=== PATIENT | male | born 1925 | race Caucasian/White ===

== ENCOUNTER 2016-08-07 03:13 | Inpatient (IN) | payer MEDICARE, BC ==
[~2016-08-07] VITALS: Ht 185.4 cm; Wt 112.8 kg
[~2016-08-07 03:13] MED LIST: ACETAMINOPHEN500 M1 PO; CEFTIN250 MG PO; CHILDREN'S ASPI81 MG PO; CORDARONE200 MG PO; COZAAR25 MG PO; CRANBERRY475 MG PO; FLOMAX0.4 MG PO; GLUCOTROL XL 5 M5 MG PO; LEVEMIR100 U/M1 SC; LEVOXYL100 MCG PO; LIPITOR40 MG PO; MILK OF MAGNESI30 ML PO; MIRALAX17 GM PO; MYLANTA II SUSP30 ML PO; NORVASC2.5 MG PO; PERI-COLACE TAB1 TAB PO; PLAVIX75 MG PO; REMERON15 MG PO; THEREMS-M1 TAB PO; ZYLOPRIM100 MG PO
[2016-08-07 03:55] LABS: BASOPHILS 0 % (0.0-2.0); EOSINOPHILS 0.5 % (0-7); HEMATOCRIT 37.8 % (42.0-54.0); HEMOGLOBIN 11.5 g/dL (13.5-17.5); IMMATURE GRANULOCYTES 0.3 % (0-5); LYMPHOCYTES 6.4 % (15-50); MCH 29.8 pg (26.0-34.0); MCHC 30.4 g/dL (31.0-37.0); MCV 97.9 fL (80.0-100.0); MEAN PLATELET VOLUME 9.6 fL (7.4-10.4); MONOCYTES 13.2 % (2-11); NEUTROPHILS 79.6 % (40-80); PLATELET COUNT 141 10x3/uL (130-400); RBC 3.86 10x6/uL (4.20-6.10); RDW 15.2 % (11.5-14.5); WBC 6.2 10x3/uL (4.8-10.8)
[2016-08-07 04:16] LABS: ANION GAP 8.2 mmol/L (8-16); BILIRUBIN - TOTAL 0.32 mg/dL (0.2-1.3); CALCIUM 8.2 mg/dL (8.5-10.1); CREATININE - SERUM 1.3 mg/dL (0.6-1.3); POTASSIUM - SERUM 5.2 mmol/L (3.5-5.1); PROTEIN - SERUM 6.3 g/dL (6.4-8.2)
--- NOTE | 2016-08-07 08:00 | NUR ---
RECIEVED TO ROOM FROM ER NON RESPONSIVE FAMILY AT SIDE LUNGS WITH DIMINISHED SOUNDS BILATERALLY AND A&P ABDOMEN SOFT AND NON TENDER ROUND. PIV TO LEFT HAND PATENT TO LEVAQUIN. O2 @ 2LPM PER ORDER. VITAL SIGNS WITH IN NORMAL LIMITS BUT HAS HYPTHERMIA NOTED BODY TEMP 93.4 BLANKET FROM BLANKET WARMER PLACED NEXT TO SKIN. WILL REASSESS,
--- NOTE | 2016-08-07 10:00 | NUR ---
MOTA CATHETER INSERTED 16 FR USING STERILE TECHNIQUE IMMEDIATE RETURN OF 600 CC CLEAR YELLOW URINE. AFTER DRAINING BLADDER PT HAS EPISODE OF RESPONSIVENESS TALKING TO FAMILY AND STAFF ALERT AND ORINETD X 2 BODY TEMP 95.6 NOTED
[2016-08-07 13:20] VITALS: BP 143/58
[2016-08-07 13:44] LABS: APPEARANCE HAZY (CLEAR); BILIRUBIN NEGATIVE (NEGATIVE); COLOR YELLOW (YELLOW); GLUCOSE NEGATIVE (NEGATIVE); KETONE NEGATIVE (NEGATIVE); LEUKOCYTE ESTERASE TRACE (NEGATIVE); NITRITE NEGATIVE (NEGATIVE); PROTEIN NEGATIVE (NEGATIVE); SPECIFIC GRAVITY 1.015 (1.005-1.020); UROBILINOGEN NORMAL (NORMAL)
[2016-08-07 13:54] LABS: AMORPHOUS SEDIMENT >1+ /lpf (NONE SEEN); BACTERIA MODERATE /hpf (NONE SEEN); EPITHELIAL CELLS OCC /hpf (0-5); GRANULAR CAST 0-5 /lpf (NONE SEEN); HYALINE CAST 0-5 /lpf (NONE SEEN); RED CELLS - URINE OCC /hpf (0-5)
[2016-08-07 14:08] VITALS: BP 161/70; BMI 31.7
[2016-08-07 16:37] VITALS: BP 137/59
--- NOTE | 2016-08-07 16:42 | HP ---
PATIENT: ZAHRA HEALY V MEDICAL RECORD: [id number] ACCOUNT: [id number] LOCATION:D.[id number] : [birth year] ADMISSION DATE: 08/07/16 HISTORY AND PHYSICAL EXAMINATION Admission History and Physical HISTORY OF PRESENT ILLNESS: An 89-year-old male, patient of Dr. Prince, presented to the Emergency Room as unassigned medicine, respiratory distress, unresponsive, has had deteriorating symptoms for the past 2 days. He is bedridden for several years and getting out of bed with full assist [facility] to a chair at the [facility], has advanced dementia, nonverbal. PAST MEDICAL HISTORY: Significant for prior CVA, diabetes, hypertension, gout, advanced dementia, unclear cardiac disease. Family reports he has not seen a concrete vault maker. REVIEW OF SYSTEMS: Limited to the above history. MEDICATIONS FROM THE RETIREMENT: Include recently started cefuroxime, Flomax, Plavix, amiodarone, this is reportedly for ventricular fibrillation; amlodipine, atorvastatin, aspirin, Milk of Magnesia p.r.n., MiraLax, Jennifer-Colace, Levemir 30 units subQ daily, levothyroxine 100 mcg daily, glipizide 5 mg daily, cranberry capsule. ALLERGIES: REPORTED OMEPRAZOLE. PHYSICAL EXAMINATION: VITAL SIGNS: Afebrile, blood pressure 163/69, labile, heart rate 71, respirations 21, and O2 sats 97% on 2 liters. HEENT: Does not open his eyes No evidence of trauma. NECK: Supple, no JVD. HEART: Regular rate and rhythm. LUNGS: Coarse rhonchi bilaterally, poor air movement. ABDOMEN: Soft and nontender. CHEST: On his chest, he has bruising consistent with extensive sternal rub and likely unresponsive at the [facility] leading to his transfer to the ER. EXTREMITIES: Present times 4. GENITOURINARY: No evidence of trauma. Elliott placed with 600 plus cc, immediate return. NEUROLOGIC: The patient is nonverbal, unresponsive presently. LABORATORY DATA: Lactic acid 0.5. CBC: White count 6.2, hemoglobin 11.5, hematocrit 37.8, and platelets 141. Chemistry shows a sodium of 142, potassium 5.2, chloride 104, bicarbonate 35, creatinine 1.3. T-bili 0.32, AST 13, ALT 20. ProBNP 545, albumin 3.0. DIAGNOSTIC DATA: Chest x-ray, moderate right and small left pleural effusion, consolidation in right lower lobe, increased interstitial markings, concerning for underlying infectious infiltrate. ASSESSMENT AND PLAN: Pneumonia, congestive heart failure, acute mental status change with chronic advanced dementia, diabetes. The patient is admitted med on-call. Cautious diuresis, monitor blood pressure. IV antibiotics for the pneumonia. Blood cultures pending. With diabetes, sliding scale insulin, low HISTORY AND PHYSICAL [id number] MONET,ONYAL V resistance. We will consult pulmonology. We will obtain echocardiogram. We will obtain CT of the head. Discussed with the family with multiple comorbidities. PRESENTATION: Poor prognosis. DNR code status. I do not want him intubated, no heroic measures. TRANSINT:[id number] Voice Confirmation ID: [id number] DOCUMENT ID: [id number] TWILA PARK DO at 1642 CC: [id number] DICTATION DATE: 08/07/16 1145 [employer] SYSTEMS ADMINISTRATOR: 08/07/16 1336 ADM IN [facility] [address] [place] [address]
--- NOTE | 2016-08-07 18:28 | NUR ---
COMPLAINS OF CHEST PAIN DR DAWSON ROUNDS NEW ORDERS OBTAINED. AND FOLLOWED PHYSICAN CONSULT FOR CARDIOLOGY SPOKE WITH DR SIMPSON STAT LABS OF TRIPONIN AND D DIMER. FAMILY AT BEDSIDE.
[2016-08-07 20:00] VITALS: BP 119/52
[2016-08-08] VITALS: BP 141/54
[2016-08-08 04:00] VITALS: BP 102/72
--- NOTE | 2016-08-08 04:40 | NUR ---
PATIENT RESTING WITH EYES CLOSED AND GUEST AT BEDSIDE. NO VISIBLE SIGNS OF DISTRESS. BED IN LOWEST POSITION AND CALL LIGHT WITHIN REACH.
--- NOTE | 2016-08-08 05:52 | NUR ---
PT WAS MEDICATED WITH GLUCAGEN D/T BS OF 55 AT THIS TIME.WIILL RECHECK IN 30 MINS.
[2016-08-08 07:00] LABS: BASOPHILS 0.2 % (0.0-2.0); EOSINOPHILS 0.6 % (0-7); HEMATOCRIT 35.7 % (42.0-54.0); HEMOGLOBIN 10.9 g/dL (13.5-17.5); IMMATURE GRANULOCYTES 0.2 % (0-5); MCHC 30.5 g/dL (31.0-37.0); MCV 98.3 fL (80.0-100.0); MONOCYTES 15.8 % (2-11); NEUTROPHILS 71.2 % (40-80); PLATELET COUNT 146 10x3/uL (130-400); RBC 3.63 10x6/uL (4.20-6.10); RDW 15.5 % (11.5-14.5); WBC 4.8 10x3/uL (4.8-10.8)
[2016-08-08 07:20] LABS: ANION GAP 8.2 mmol/L (8-16); CALCIUM 8.6 mg/dL (8.5-10.1); CARBON DIOXIDE 34.9 mmol/L (21.0-32.0); CREATININE - SERUM 1.4 mg/dL (0.6-1.3); MAGNESIUM - SERUM 2.3 mg/dL (1.8-2.4); PHOSPHOROUS 3.8 mg/dL (2.5-4.9); POTASSIUM - SERUM 5.1 mmol/L (3.5-5.1)
--- NOTE | 2016-08-08 07:45 | NUR ---
SLEEPING, AROUSES TO VOICE, FAMILY AT BEDSIDE, DENIES NEEDS WILL CONTINUE TO MONITOR
[2016-08-08 10:07] VITALS: BP 140/61
[2016-08-08 12:50] VITALS: BP 138/64
[2016-08-08 17:17] VITALS: BP 132/60
[2016-08-08 19:00] VITALS: BP 141/60
--- NOTE | 2016-08-08 20:00 | NUR ---
REC'IN BED WITH EYES CLOSED EASILY AROUSED WHEN NAME IS CALLED. RESP EVEN AND UNLABORED WITH NO DISTRESS NOTED. CAN EXPRESS SOME NEEDS AND WANTS. NO C/O PAIN OR DISCOMFORT NOTED OR VOICED AT THIS TIME. C/L IN REACH AT BEDSIDE.
[2016-08-09] VITALS (13 sets, daily range): BP systolic 127–167; BP diastolic 56–80
--- NOTE | 2016-08-09 04:37 | NUR ---
RESTING WELL AT THIS TIME WITH DAUGHTER AT BEDSIDE. CHECKED ON OFTEN. C/L IN REACH AT BEDSIDE.
[2016-08-09 04:59] LABS: BASOPHILS 0.2 % (0.0-2.0); EOSINOPHILS 0.7 % (0-7); HEMATOCRIT 34.7 % (42.0-54.0); HEMOGLOBIN 10.8 g/dL (13.5-17.5); LYMPHOCYTES 24.5 % (15-50); MCH 30.3 pg (26.0-34.0); MCHC 31.1 g/dL (31.0-37.0); MCV 97.5 fL (80.0-100.0); MEAN PLATELET VOLUME 9.9 fL (7.4-10.4); NEUTROPHILS 58.6 % (40-80); PLATELET COUNT 172 10x3/uL (130-400); RBC 3.56 10x6/uL (4.20-6.10); RDW 15.5 % (11.5-14.5); WBC 5.4 10x3/uL (4.8-10.8)
[2016-08-09 05:28] LABS: APTT 40.1 SECONDS (22.8-39.4); INR 1.2 (0.85-1.17); PROTIME 15.1 SECONDS (11.6-15.0)
[2016-08-09 05:32] LABS: CALCIUM 9.1 mg/dL (8.5-10.1); CARBON DIOXIDE 35.5 mmol/L (21.0-32.0); CREATININE - SERUM 1.6 mg/dL (0.6-1.3); MAGNESIUM - SERUM 2.5 mg/dL (1.8-2.4); POTASSIUM - SERUM 4.5 mmol/L (3.5-5.1); PROTEIN - SERUM 6.1 g/dL (6.4-8.2)
--- NOTE | 2016-08-09 10:24 | NUR ---
Patient Name: ZAHRA HEALY Admission Status: ER Accout number: [id number] Admission Date: 08-07-2016 : 1925 Admission Diagnosis: Attending: KANIKA Current LOS: 2 Anticipated DC Date: 08-13-2016 Planned Disposition: Nursing Facility [facility] Cert Primary Insurance: MEDICARE A & B Discharge Planning Comments: CM MET WITH FAMILY-PAXTON (DAUGHTER), AND GABE (SON) REGARDING D/C NEEDS AND PLANS. PATIENT LIVES AT [facility] AND WILL RETURN THERE BY AMBULANCE WHEN DISCHARGED. PATIENT USES OXYGEN AT , DIABETIC, AND IS IN A WHEELCHAIR WHEN UP PER FAMILY. PATIENTS PCP IS DR. DIAZ AND PHARMACY IS IN HOUSE. CM WILL CONTINUE TO FOLLOW PATIENT WITH D/C NEEDS AND PLANS. PCP DR. DIAZ IN HOUSE PHARMACY AT [facility] [phone] PAXTON (DAUGHTER) [phone] GABE (SON) [phone] Offender Employment Specialist: Tatyana Jennings How many steps to enter\exit or inside your home? 0 0 * PCP DR. DIAZ 0 * Pharmacy IN HOUSE [facility] 0 * Preadmission Environment Alf Long-Term 0 * Facility Name [facility] 0 * ADLs Total Dependent 0 * Equipment Oxygen Wheelchair 0 * Other Equipment [facility] HAS NEEDED EQUIPMENT 0 * List name and contact numbers for known caregivers / representatives who currently or will assist patient after discharge: PAXTON HANDLEY (DAUGHTER) [phone] GABE HEALY (SON) [phone] 0 * Community resources currently utilized None 0 * Additional services required to return to the preadmission environment? Yes 0 * Can the patient safely return to the preadmission environment? Yes 0 * Has this patient been hospitalized within the prior 30 days at any hospital? No 0 Grand Total: 0
[2016-08-09 12:20] LABS: PROTEIN - BODY FLUID 2.6 G/DL
--- NOTE | 2016-08-09 12:40 | EC ---
PATIENT:ZAHRA HEALY V DATE OF SERVICE: 08/07/16 SEX: M MEDICAL RECORD: [id number] DATE OF : [birth year] LOCATION:D[facility] AGE OF PATIENT: 89 ADMISSION DATE: 08/07/16 REFERRING PHYSICIAN: INTERPRETING PHYSICIAN: MARILIN SIMPSON MD ECHOCARDIOGRAM REPORT ECHO CHARGES 4 ECHO COMPLETE CLINICAL DIAGNOSIS: CHF ECHOCARDIOGRAPHIC MEASUREMENTS (adult normal given) AC root (d.<3.7cm) 3.8 LV Septum d (<1.2 cm> 1.4 Valve Excursion 1.5 LV Septum (systole) 1.7 Left Atria (s.<4.0cm> 4.0 LVPW d(<1.2cm) 1.5 RV (d.<2.3cm) 4.1 LVPW (sytole) 1.9 LV diastole(<5.6CM) 4.9 MV E-F(>70mm/sec) LV systole 3.8 LVOT Diameter 1.8 MV exc.(>10mm) Est.ejection fraction (50-75%) Pericardial Effusion N DOPPLER: LVIT A 122 E 99.0 LA RVSP 27 LVOT 172 AOP1/2T Asc. Ao 257 RVOT 79 RA PA 120 AV Gradient Peak 26.41 AV Mean 13.44 AV Area 1.7 MV Gradient Peak 6.72 MV Mean 2.71 MV Area COMMENTS: Housekeeping Aid: Manuel DICKERSON Automation Clerk:Yahaira Wood TAPE# PACS DATE OF SERVICE: 08/07/2016 Adequate 2D echo, color flow, spectral Doppler, M-Mode. LVH present. LV internal dimension is normal. Wall motion is normal. EF is greater than 55%. Aortic valve is tricuspid. No stenosis by Doppler interrogation. The left atrium is normal. Mitral valve shows no prolapse. Trace mitral regurgitation. Right-sided chamber is normal. Trace tricuspid regurgitation. TRANSINT:[id number] Voice Confirmation ID: [id number] DOCUMENT ID: [id number] ECHOCARDIOGRAM REPORT [id number] AZHRA HEALY V MARILIN SIMPSON MD at 1240 CC: [id number] DICTATION DATE: 08/07/162006 COMPUTER METHODS ANALYST: 08/07/16 2303 ADM IN [facility] [address] [facility] [address]
--- NOTE | 2016-08-09 13:15 | NUR ---
PT AOX4 RESP EVEN AND NONLABORED PT DENIES PAIN AT THIS TIME IV TO LEFT HAND PATENT AND INTACT PT RECEIVING IV ANTIBIOTICS FOR PNEUMONIA DURING THIS SHIFT. SRX2 CALL LIGTH WITHIN REACH BED IN LOWEST POSITION WILL CONTINUE TO MONITOR
[2016-08-09 14:44] LABS: LYMPH - BF 36 %; MACROPHAGES BF 37 %; MESOTHELIALS BF 13 %; NEUT - BF 14 %
--- NOTE | 2016-08-09 19:35 | NUR ---
PT RECEIVED IN BED WITH EYES CLOSED AND CHEST RISING. AROUSED TO VERBAL STIMULI. NO SIGN/SYMPTOMS OF DISTRESS NOTED. NO NEEDS MADE KNOWN. WILL CONTINUE TO OBSERVE. CALL LIGHT IN REACH.
[2016-08-10] VITALS (7 sets, daily range): BP systolic 137–153; BP diastolic 62–72; Ht 185.4 cm; Wt 112.8 kg
--- NOTE | 2016-08-10 00:16 | NUR ---
PT IN BED WITH EYES CLOSED AND CHEST RISING. AROUSED TO VERBAL STIMULI. NO SIGN/SYMPTOMS OF DISTRESS NOTED. FSBS 100 WITH 6U GIVEN. NO CONCERNS NOTED AT THIS TIME. WILL CONTINUE TO OBSERVE. CALL LIGHT IN REACH.
--- NOTE | 2016-08-10 02:52 | NUR ---
PT IN BED WITH EYES CLOSED AND CHEST RISING. NO SIGN/SYPTOMS OF DISTRESS NOTED. CALL LIGHT IN REACH.
[2016-08-10 06:07] LABS: BASOPHILS 0.2 % (0.0-2.0); EOSINOPHILS 4.3 % (0-7); HEMATOCRIT 35.5 % (42.0-54.0); HEMOGLOBIN 10.7 g/dL (13.5-17.5); IMMATURE GRANULOCYTES 0.4 % (0-5); LYMPHOCYTES 17.5 % (15-50); MCH 29.7 pg (26.0-34.0); MCHC 30.1 g/dL (31.0-37.0); MCV 98.6 fL (80.0-100.0); MEAN PLATELET VOLUME 9.6 fL (7.4-10.4); MONOCYTES 17.5 % (2-11); NEUTROPHILS 60.1 % (40-80); PLATELET COUNT 170 10x3/uL (130-400); RDW 15.4 % (11.5-14.5); WBC 5.4 10x3/uL (4.8-10.8)
[2016-08-10 06:58] LABS: CALC OSMOLALITY 304 mosm/kg (275-300); CARBON DIOXIDE 38.5 mmol/L (21.0-32.0); CHLORIDE - SERUM 106 mmol/L (98-107); CREATININE - SERUM 1.6 mg/dL (0.6-1.3); GLUCOSE 113 mg/dL (74-106); MAGNESIUM - SERUM 2.2 mg/dL (1.8-2.4); POTASSIUM - SERUM 4.3 mmol/L (3.5-5.1); PRO BNP 742 pg/mL (0-450); SODIUM 147 mmol/L (136-145); TROPONIN-I < 0.017 ng/mL (0.000-0.060); UREA NITROGEN 45 mg/dL (7-18); eGFR NON AFRICAN AMERICAN 43 mL/min (90-120)
--- NOTE | 2016-08-10 07:30 | NUR ---
PT ASSESSMENT AWAKE CONFUSED IS LETHARGIC AROUSES TO VERBAL STIMULI BUT FALLS RAPIDLY BACK TO SLEEP BSA X 4 QUADS.
--- NOTE | 2016-08-10 15:55 | NUR ---
PT CONFUSED RESP EVEN AND NONLABORED IV TO LEFT HAND PATENT AND INTACT PT HERE FOR PNEUMONIA IV ANTIBIOTICS FOR TREATMENT. SRX2 CALL LIGHT WITHIN REACH BED AT LOWEST SETTING WILL CONTINUE TO MONITOR BED ALARM ACTIVATED
--- NOTE | 2016-08-10 19:15 | NUR ---
PT RECEIVED LYING IN BED WITH EYES CLOSED AT THIS TIME. PT LETHARGIC. S/L NOTED TO LEFT WRIST. DRESSING CDI. HEART RRR. LUNG SOUNDS - UPPER LOBES CLEAR. BILATERAL LOWER LOBE SOUNDS DIMINISHED. BOWEL SOUNDS ACTIVE X4 QUADRENTS. ABDOMEN SOFT, NON-TENDER. SCDS NOTED TO BLE. NO NEEDS NOTED AT THIS TIME. BED LOW. PHONE AND CALL LIGHT IN REACH. SRX2.
--- NOTE | 2016-08-10 20:58 | NUR ---
PT RESTING QUIETLY AT THIS TIME WITH EYES CLOSED. AROUSED TO VOICE. PM MEDS GIVEN AT THIS TIME. PT TOLERATED WELL. DENIES NEEDS. BED LOW. PHONE AND CALL LIGHT IN REACH. SRX2.
--- NOTE | 2016-08-10 22:30 | NUR ---
PT RESTING QUIETLY AT THIS TIME WITH EYES CLOSED. RESPIRATIONS EVEN, NON-LABORED. NO ACUTE DISTRESS NOTED AT THIS TIME. BED LOW. PHONE AND CALL LIGHT IN REACH. SRX2.
--- NOTE | 2016-08-11 00:02 | NUR ---
PT FSBS 207 AT THIS TIME.
--- NOTE | 2016-08-11 00:25 | NUR ---
PT RESTING QUIETLY AT THIS TIME WITH EYES CLOSED. RESPIRATIONS EVEN, NON-LABORED. NO ACUTE DISTRESS NOTED AT THIS TIME. UNABLE TO FLUSH IV AT THIS TIME. REMOVED S/L FROM LEFT WRIST AT THIS TIME. CATHETER TIP INTACT. NEW IV STARTED TO LEFT FOREARM VIA ASIA SAMAYOA. IV ANTIBIOTICS INITIATED AT THIS TIME. BED LOW. PHONE AND CALL LIGHT IN REACH. SRX2.
[2016-08-11 04:01] VITALS: BP 149/67
--- NOTE | 2016-08-11 05:40 | NUR ---
PT FSBS 170 AT THIS TIME. HELD DUE TO PT NOT EATING.
--- NOTE | 2016-08-11 06:32 | NUR ---
CARAFATE AND SYNTHROID PO GIVEN AT THIS TIME CRUSHED IN APPLE SAUCE. PT TOLERATED WELL. PT DENIES NEEDS AT THIS TIME. BED LOW. PHONE AND CALL LIGHT IN REACH. SRX2.
--- NOTE | 2016-08-11 07:45 | NUR ---
PT ASSESSMENT COMPLETE PT AROUSES TO VERBAL STIMULI FOR VERY BREIF TIME THEN QUICKLY BACK TO SLEEP. UNABLE TO OBEY COMMANDS TOTAL CARE PER STAFF SPOON FED PER STAFF. CALL LIGHT IN REACH HOWEVER HAS FREQUENT STAFF CHECKS DUE TO PT INABILITY TO CALL FOR ASSIST.
[2016-08-11 08:23] VITALS: BP 167/65
[2016-08-11 13:05] VITALS: BP 140/99
[2016-08-11 13:16] LABS: FUNGUS STAIN Final report (())
--- NOTE | 2016-08-11 13:18 | NUR ---
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 lungs clear bilat with no sob noted or voiced with oxygen at 3 l nc. arms swollen with 2+ edema. legs 3+ edema. fall risk score of 3. non skid socks on bilat with scds, yellow armband and bed alarm applied for safety. family at bedside. call light in reach
--- NOTE | 2016-08-11 13:37 | NUR ---
CM REASSESSMENT NOTE: CM SPOKE WITH [facility] ([facility]) REGARDING D/C POSSIBLY TOMORROW. CM EXPLAINED PATIENT WAS TO FINISH HIS IV ABX AT FACILITY. ANKUR AT FACILITY STATED THAT WOULD BE FINE - JUST NEEDED A TIME TO HOT SAW HELPER PATIENT FOR TRANSFER BACK TO FACILITY. CM WILL CALL ANKUR IN AM. UPDATE SENT TO FACILTY.
[2016-08-11 16:12] VITALS: BP 132/63
[2016-08-11 17:13] LABS: ACID FAST SMEAR Negative (()); AFB SPECIMEN PROCESSING Concentration (())
[2016-08-11 19:00] VITALS: BP 114/64
[2016-08-12] VITALS: BP 147/67
--- NOTE | 2016-08-12 00:39 | NUR ---
REC'D PATIENT LYING SEMI FOWLERS IN BED. NO DISTRESS NOTED. ALERT AND ORIENTED TO SELF. DENIED PAIN AT THIS TIME. SALINE LOCKED HIS IV. INSTRUCTED TO CALL IF NEEDED ANYTHING. VERBLAZED UNDERSTANDING. BED LOW, LOCKED, CALL LIGHT IN REACH, ALARM ON.
--- NOTE | 2016-08-12 03:11 | NUR ---
PATIENT IS RESTING IN BED. DENIES PAIN AT THIS TIME. DENIES FURTHER NEEDS AT THIS TIME. NO DISTRESS NOTED. INTRUCTED TO CALL IF NEEDED ANYTHING. BED LOW, LOCKED, CALL LIGHT IN REACH, ALARM ON.
[2016-08-12 04:00] VITALS: BP 149/74
[2016-08-12 04:29] LABS: BASOPHILS 0.1 % (0.0-2.0); EOSINOPHILS 6.2 % (0-7); HEMATOCRIT 36.6 % (42.0-54.0); IMMATURE GRANULOCYTES 0.3 % (0-5); LYMPHOCYTES 17.6 % (15-50); MCH 29.6 pg (26.0-34.0); MCHC 30.1 g/dL (31.0-37.0); MCV 98.7 fL (80.0-100.0); MEAN PLATELET VOLUME 9.4 fL (7.4-10.4); NEUTROPHILS 60.8 % (40-80); PLATELET COUNT 187 10x3/uL (130-400); RBC 3.71 10x6/uL (4.20-6.10); RDW 15.1 % (11.5-14.5)
[2016-08-12 04:36] LABS: WBC 6.9 10x3/uL (4.8-10.8)
[2016-08-12 04:53] LABS: ANION GAP 8.2 mmol/L (8-16); CALCIUM 9.1 mg/dL (8.5-10.1); CARBON DIOXIDE 36.8 mmol/L (21.0-32.0); CREATININE - SERUM 1.6 mg/dL (0.6-1.3)
--- NOTE | 2016-08-12 06:10 | NUR ---
PATIENT IS RESTING IN BED. SAID EARLIER THAT "IM READY TO GO TO [facility] TO SEE MY " HAS BEEN RESTING SINCE. DENIED PAIN AT THIS TIME. DENIED FURTHER NEEDS AT THIS TIME. INSTRUCTED TO CALL IF NEEDED ANYTHING. BED LOW, LOCKED, CALL LIGHT IN REACH, ALARM ON.
[2016-08-12] MEDS ORDERED: GENTAK3.5 GM EACH EYE (07:32)
[2016-08-12] MEDS ORDERED: ATROVENT 0.02%2.5 ML UPD (07:32)
[2016-08-12] MEDS ORDERED: OMNICEF300 MG PO (07:34)
--- NOTE | 2016-08-12 08:12 | NUR ---
PT ASSESSMENT COMPLETE PT AWAKE AND ALERT THIS AM ANSWERS QUESTIONS APPROPRIATELY. BSA X 4 LUNGS WITH DIMINSHED SOUNDS TO BILATERAL BASES 4+ EDEMA NOTED TO BILAT ARMS. WILL MONICA HAS DISCHARGE ORDER FOR RETURN TO [facility] TODAY
--- NOTE | 2016-08-12 08:50 | NUR ---
CM REASSESSMENT NOTE: PATIENT IS DISCHARGING BACK TO [facility] TO A SKILLED BED BY AMBULANCE TODAY. FAMILY AWARE
--- NOTE | 2016-08-12 09:00 | NUR ---
LYING IN BED,WITHOUT DISTRESS.CALL LIGHT IN REACH
[2016-08-12 09:29] VITALS: BP 145/80
--- NOTE | 2016-08-12 11:57 | NUR ---
REPORT CALLED TO MERNA AT [facility] LEFT VIA EMS TRANSPORT PIV DISCONTINUED.
--- NOTE | 2016-08-13 07:54 | DS ---
PATIENT:ZAHRA HEALY V :[birth year] MEDICAL RECORD: [id number] DISCHARGE SUMMARY ADMISSION DATE: 08/07/16 DISCHARGE DATE: 08/12/16 DATE OF ADMISSION: 08/07/2016 DATE OF DISCHARGE: 08/12/2016 ADMISSION DIAGNOSES: Pneumonia, congestive heart failure, reported acute mental status change, chronic advanced dementia and diabetes. DISCHARGE DIAGNOSES: Pneumonia, congestive heart failure, acute mental status change, chronic advanced dementia, diabetes. CONSULTS: Dr. Parsons, pulmonology; cardiology; interventional radiology. HOSPITAL COURSE: The patient is an 89-year-old gentleman in general decline, [facility], had reported fever and chills. Chest x-ray showed pleural effusion, underwent thoracentesis. ____ did not grew out any pathogens. He has been on IV antibiotics. He is nonambulatory. He did report to the nurse early this morning that he wanted to go home to be with his . He is a DO NOT RESUSCITATE code status. He is stable. On exam today, his lungs are clear. He is stable on his current medications, has been cleared by cardiology. He is discharged to home in stable and improved condition. VITAL SIGNS ON DISCHARGE: Temperature 97.7, blood pressure is 149/74, heart rate 88, respirations 18, O2 sats 96%. DISCHARGE MEDICATIONS: Per med rec. LABORATORY DATA: CBC on discharge, white count 6.9, hemoglobin 11, hematocrit 36.6, platelets 197. Again, cultures have remained negative. Agree with assessments from cardiology and pulmonology. The patient will follow up with his primary care physician, Dr. Prince[facility] the jail. Please see chart for further details. TRANSINT:[id number] Voice Confirmation ID: [id number] DOCUMENT ID: [id number] TWILA PARK DO at 0754 CC: [id number] DICTATION DATE: 08/12/16 0739 DYER ASSISTANT: 08/12/16 0943 DIS IN 08/12/16 [facility] [address] [place] [address]
== END 2016-08-12 11:58 | disposition home or self-care (01) | DRG 194 ==
LOC: D.ER 03:13 → D.MS 07:40
PROVIDERS: Emergency Medicine; Internal Medicine Pulmonary Disease; Radiology Diagnostic Radiology; ADMIT Family Medicine
PROC: 0W993ZZ Drainage of Right Pleural Cavity, Percutaneous Approach (ICD-10-PCS; principal; 2016-08-09 08:32)
DX: J18.9 Pneumonia, unspecified organism (principal); E87.0 Hyperosmolality and hypernatremia; J90 Pleural effusion, not elsewhere classified; Z66 Do not resuscitate; I49.9 Cardiac arrhythmia, unspecified; H10.9 Unspecified conjunctivitis; M10.9 Gout, unspecified; R53.81 Other malaise; F03.90 Unspecified dementia, unspecified severity, without behavioral disturbance, psychotic disturbance, mood disturbance, and anxiety; E11.40 Type 2 diabetes mellitus with diabetic neuropathy, unspecified; I12.9 Hypertensive chronic kidney disease with stage 1 through stage 4 chronic kidney disease, or unspecified chronic kidney disease; N18.9 Chronic kidney disease, unspecified; K21.9 Gastro-esophageal reflux disease without esophagitis; Z86.73 Personal history of transient ischemic attack (TIA), and cerebral infarction without residual deficits